=== PATIENT | female | born 1930 | race Caucasian/White ===

== ENCOUNTER 2020-11-15 11:50 | Emergency (ER) | payer MEDICARE, MEDICAID ==
[~2020-11-15] VITALS: Ht 170.2 cm; Wt 84.0 kg
[~2020-11-15 11:50] MED LIST: DORZOLAMIDE2 % OP; HYDROCHLOROT12.5 MG PO; LATANOPROST0.005 % OP; LISINOPRIL20 MG PO; PRILOSEC40 MG PO
[2020-11-15 13:48] LABS: HEMATOCRIT 43.4 % (37.0-47.0); HEMOGLOBIN 13.9 g/dl (12.0-16.0); IMMATURE GRANULOCYTES 0.3 % (0.0-5.0); MEAN CELL VOLUME 93.1 fL CALC (80.0-100.0); MEAN CORPUSCULAR HGB 29.8 pG CALC (26.0-32.0); NEUT# 7.06 thou/uL (2.00-7.15); RED BLOOD COUNT 4.66 mill/uL (4.20-5.60); RED CELL DISTRI WIDTH 13.1 % (11.5-15.5)
[2020-11-15 13:58] LABS: ALBUMIN 4.2 g/dL (3.2-5.0); ALKALINE PHOSPHATASE 117 u/l (38-126); ANION GAP 13 (6-22 (CALC)); BILIRUBIN, TOTAL 0.6 mg/dL (0.0-1.4); BUN 14 mg/dL (8-23); BUN/CREATININE RATIO 18 (12-20 (CALC)); CARBON DIOXIDE 25 mmol/l (22-30); CHLORIDE 103 mmol/l (95-108); CREATININE 0.8 mg/dL (0.5-1.0); GFR > 60 ML/MIN (>=60 (CALC)); GFR FOR AFR.AMER. > 60 ML/MIN (>=60 (CALC)); POTASSIUM 3.8 mmol/l (3.5-5.1); SGOT/AST 24 u/l (9-36); SODIUM 137 mmol/l (137-146); TOTAL PROTEIN 7.9 g/dL (6.3-8.2)
[2020-11-15 14:10] LABS: MYOGLOBIN 64 ng/mL (0 - 62)
[2020-11-15] MEDS ORDERED: METOPROLOL SUCCINATE PO (15:34)
[2020-11-15 16:11] VITALS: BP 163/82
== END 2020-11-15 16:29 | disposition home or self-care (01) ==
LOC: ED 11:50
PROVIDERS: Emergency Medicine
DX: S00.83XA Contusion of other part of head, initial encounter (principal); S00.31XA Abrasion of nose, initial encounter; I10 Essential (primary) hypertension; W01.0XXA Fall on same level from slipping, tripping and stumbling without subsequent striking against object, initial encounter; Y92.22 Religious institution as the place of occurrence of the external cause

== ENCOUNTER 2021-05-20 16:14 | Observation (INO) | payer MEDICARE, MEDICAID ==
[~2021-05-20] VITALS: Ht 170.2 cm; Wt 87.0 kg
[~2021-05-20 16:14] MED LIST changes: +DORZOLAMIDE HCL2 % OU; -DORZOLAMIDE2 % OP; +METOPROLOL SUCCINATE PO
--- NOTE | 2021-05-20 16:15 | NUR ---
TO ROOM BY EMS FOR TRIAGE
[2021-05-20 17:02] LABS: HEMATOCRIT 36.2 % (37.0-47.0); HEMOGLOBIN 11.3 g/dl (12.0-16.0); IMMATURE GRANULOCYTES 0.1 % (0.0-5.0); MEAN CELL VOLUME 93.5 fL CALC (80.0-100.0); MEAN CORPUSCULAR HGB 29.2 pG CALC (26.0-32.0); MEAN CORPUSCULAR HGB CONC 31.2 g/dL CAL (32.0-36.0); NEUT# 8.44 thou/uL (2.00-7.15); RED BLOOD COUNT 3.87 mill/uL (4.20-5.60); RED CELL DISTRI WIDTH 13.6 % (11.5-15.5)
[2021-05-20 17:11] LABS: ALKALINE PHOSPHATASE 88 u/l (38-126); ANION GAP 9 (6-22 (CALC)); BUN 12 mg/dL (8-23); BUN/CREATININE RATIO 17 (12-20 (CALC)); CARBON DIOXIDE 26 mmol/l (22-30); CHLORIDE 103 mmol/l (95-108); CREATININE 0.7 mg/dL (0.5-1.0); GFR > 60 ML/MIN (>=60 (CALC)); GFR FOR AFR.AMER. > 60 ML/MIN (>=60 (CALC)); LIPASE 77 u/l (23-300); POTASSIUM 3.9 mmol/l (3.5-5.1); SGOT/AST 19 u/l (9-36); SODIUM 134 mmol/l (137-146)
[2021-05-20 17:23] LABS: ALBUMIN 3.2 g/dL (3.2-5.0); BILIRUBIN, TOTAL 0.1 mg/dL (0.0-1.4); TOTAL PROTEIN 5.9 g/dL (6.3-8.2)
--- NOTE | 2021-05-20 17:46 | NUR ---
REPORT FROM ELIZABETH IN SBAR FORMAT
[2021-05-20 17:52] LABS: D-DIMER 1.66 mg/L (0.19-0.60)
[2021-05-20 18:00] LABS: ACT PARTIAL THROMBO TIME 20.3 SECONDS (20.0-32.5); INTERNATIONAL NORMALIZED RATIO 0.9 RATIO (0.7-1.3); PROTHROMBIN TIME 9.9 SECONDS (9.0-12.5)
--- NOTE | 2021-05-20 19:06 | NUR ---
RECIEVED REPORT FROM GIBSON ARIAS. ASSUMED CARE OF PATIENT. Reassessment of patient completed. No distress noted.
--- NOTE | 2021-05-20 20:00 | NUR ---
PHYSICAL ASSESMENT COMPLETE. PT CURRENTLY DENIES PAIN OR DISCOMFORT. SCHEDULED MEDICATIONS AND PRN MEDICATION ADMINISTERED, SEE E-MAR. PT DENIES ANY NEEDS AT THIS TIME. PLAN OF CARE REVIEWED, PT DENIES QUESTIONS, VERBALIZES UNDERSTANDING. ITEMS WITHIN REACH, BED LOCKED IN LOW POSITION W/ BEDRAILS UP X2. CALL NELSON WITHIN REACH, AGREES TO CALL PRN.
--- NOTE | 2021-05-20 21:05 | NUR ---
PT RECEIVED FROM ED TO ROOM 271. ARRIVES VIA STRETCHER ACCOMPANIED BY HITESH ARREAGA. PT AMBULATORY TO BED. GAIT STEADY. PT DENIES PAIN AT THIS TIME. ORIENTED TO UNIT, ROOM, CALL NELSON, LIGHTS, TV. ICE WATER PROVIDED. CALL NELSON WITHIN REACH. AGREES TO CALL PRN.
--- NOTE | 2021-05-20 21:05 | NUR ---
Admission Note Report Given to: SARAH ARREAGA Transported by: X Wheelchair Stretcher Transported with: X Nurse Transporter X Patent IV O2 X Development Trainer Location: ICU X [facility]
[2021-05-20 21:18] VITALS: BP 198/102
[2021-05-21] VITALS: BP 139/64
--- NOTE | 2021-05-21 | NUR ---
PT LAYING IN BED WITH EYES CLOSED, APPEARS TO BE SLEEPING, APPEARS COMFORTABLE AND IN NO DISTRESS. RESPIRATIONS REGULAR AND UNLABORED. ITEMS REMAIN WITHIN REACH, CALL NELSON REMAINS WITHIN REACH. BED REMAINS LOCKED AND IN LOW POSITION WITH BEDRAILS UP X2. WILL CONTINUE TO MONITOR.
[2021-05-21 04:00] VITALS: BP 155/65
[2021-05-21 06:28] LABS: HEMATOCRIT 35.9 % (37.0-47.0); HEMOGLOBIN 11.2 g/dl (12.0-16.0); MEAN CELL VOLUME 92.8 fL CALC (80.0-100.0); MEAN CORPUSCULAR HGB 28.9 pG CALC (26.0-32.0); MEAN CORPUSCULAR HGB CONC 31.2 g/dL CAL (32.0-36.0); RED BLOOD COUNT 3.87 mill/uL (4.20-5.60); RED CELL DISTRI WIDTH 13.6 % (11.5-15.5)
[2021-05-21 06:45] LABS: ANION GAP 9 (6-22 (CALC)); BUN 11 mg/dL (8-23); BUN/CREATININE RATIO 16 (12-20 (CALC)); CALCULATED LDLCHOLESTEROL 106 mg/dL (62-129 (CALC)); CARBON DIOXIDE 26 mmol/l (22-30); CHLORIDE 104 mmol/l (95-108); CHOLESTEROL HDL RATIO 4.8 (<4.4 (CALC)); CREATININE 0.7 mg/dL (0.5-1.0); GFR > 60 ML/MIN (>=60 (CALC)); GFR FOR AFR.AMER. > 60 ML/MIN (>=60 (CALC)); HDL CHOLESTEROL 35 mg/dL (>=40); POTASSIUM 4.3 mmol/l (3.5-5.1); SODIUM 134 mmol/l (137-146); TOTAL CHOLESTEROL 168 mg/dl (0-199); TOTAL TRIGLYCERIDES 132 mg/dl (30-149); VLDL CHOLESTROL 26 mg/dl (0-48 (CALC))
[2021-05-21 06:58] VITALS: BP 167/77
--- NOTE | 2021-05-21 06:58 | NUR ---
PATIENT RESTING IN BED BARBACK DONE SEE INTERVENTION. PATIENT DENEIS ANY PAIN AT THIS TIME. PATINET IS ON ROOM AIR AT THIS TIME. SPO2 IS 98% PATIENT IS ALERT AND ORIENTED X 3. PATIENT EXHIBITS NOT SIGNS OF EDEMA AT THIS TIME. SIDERAILS ARE UP CALL LIGHT IS WITHIN REACH.
[2021-05-21] MEDS ORDERED: TOPROL XL100 MG PO (07:14)
[2021-05-21] MEDS ORDERED: MELOXICAM15 MG PO (07:14)
[2021-05-21] MEDS ORDERED: APRESOLINE50 MG PO (07:17)
[2021-05-21] MEDS ORDERED: ASPIRIN ADULT L81 M2 PO (07:17)
--- NOTE | 2021-05-21 12:10 | NUR ---
PATIENT SITTING UP AT BEDSIDE DENIES ANY NEED AT THIS TIME. UA COLLECTED AND SENT TO LAB. SIDERAILS ARE UP CALL LIGHT WITHIN REACH .
[2021-05-21 12:44] LABS: URINE BILIRUBIN - DIPSTICK NEGATIVE (NEGATIVE); URINE BLOOD DIPSTICK NEGATIVE (NEGATIVE); URINE COLOR YELLOW; URINE GLUCOSE - DIPSTICK NEGATIVE (NEGATIVE); URINE KETONE NEGATIVE (NEGATIVE); URINE LEUK ESTERASE NEGATIVE (NEGATIVE); URINE PROTEIN - DIPSTICK NEGATIVE (NEG-TRACE); URINE UROBILINOGEN - DIPSTICK 0.2 E.U./dL (0.2)
[2021-05-21 12:46] LABS: URINE NITRITE - DIPSTICK NEGATIVE (Negative)
--- NOTE | 2021-05-21 13:33 | NUR ---
PATIENT D/C AT THIS TIME. IV REMOVED TIP INTACT TELEMONITOR REMOVED CALL ED SPOKE TO NURSE CONRADO TO INFORM. PATIENT VERBALIZES UNDERSTANDING OF D/C INSTRUCIONS.
--- NOTE | 2021-05-21 14:43 | NUR ---
Discharge instructions given. Patient verbalizes understanding of same. Discharged in stable condition via Wheelchair to Home with family. All belongings sent with pt.
[2021-05-21 15:20] VITALS: BP 123/71
== END 2021-05-21 14:44 | disposition home or self-care (01) ==
LOC: ED 16:14 → ED-I 17:47 → ED 18:09 → MS2 18:10
PROVIDERS: Nurse Practitioner; ADMIT Internal Medicine; ATTEND Internal Medicine
DX: R07.9 Chest pain, unspecified (principal); R53.83 Other fatigue; I10 Essential (primary) hypertension; M19.90 Unspecified osteoarthritis, unspecified site; Z20.822 Contact with and (suspected) exposure to COVID-19
CPT/HCPCS: G0378; J1650; Q9967

== ENCOUNTER 2021-07-21 11:36 | Observation (INO) | payer MEDICARE, MEDICAID ==
[~2021-07-21] VITALS: Ht 170.2 cm; Wt 77.0 kg
[2021-07-21] VITALS: BP 126/61
[~2021-07-21 11:36] MED LIST changes: +APRESOLINE50 MG PO; +ASPIRIN ADULT L81 M2 PO; +MELOXICAM15 MG PO; +TOPROL XL100 MG PO
--- NOTE | 2021-07-21 11:44 | NUR ---
PT TO ROOM PER EMS
[2021-07-21 12:29] LABS: HEMATOCRIT 36.4 % (37.0-47.0); IMMATURE GRANULOCYTES 0.6 % (0.0-5.0); MEAN CORPUSCULAR HGB 28.6 pG CALC (26.0-32.0); NEUT# 8.27 thou/uL (2.00-7.15); RED BLOOD COUNT 4.19 mill/uL (4.20-5.60); RED CELL DISTRI WIDTH 14.4 % (11.5-15.5)
[2021-07-21 12:30] LABS: MEAN CELL VOLUME 86.9 fL CALC (80.0-100.0)
--- NOTE | 2021-07-21 12:45 | NUR ---
PT TO RADIOLOGY FOR SCAN, UP TO BEDSIDE PRIOR TOO AND HAD A LIQUID STOOL FROM [facility] GIVEN, STATES SHE STILL FEELS FULL
[2021-07-21 12:48] LABS: CREATININE 1.2 mg/dL (0.5-1.0)
[2021-07-21 12:50] LABS: BILIRUBIN, TOTAL 0.4 mg/dL (0.0-1.4); POTASSIUM 5.4 mmol/l (3.5-5.1); TOTAL PROTEIN 7.6 g/dL (6.3-8.2)
--- NOTE | 2021-07-21 13:40 | NUR ---
PT SITTING IN BED, SEMIFOWLERS, NO DISTRESS AT THIS TIME
--- NOTE | 2021-07-21 15:00 | NUR ---
PT RESTING IN BED, ON TRAVELING SALES EXECUTIVE, AWAITING RESULTS
--- NOTE | 2021-07-21 16:00 | NUR ---
PT IN NO DISTRESS AT THIS TIME
--- NOTE | 2021-07-21 17:15 | NUR ---
GAVE REPORT TO CHRISTOPHE ARREAGA, PT TRANSPORTED TO THE FLOOR VIA WHEELCHAIR WITH LAMP SHADE SEWER AND ALL BELONGINGS WITH PATIENT. NO DISTRESS AT THIS TIME
--- NOTE | 2021-07-21 17:30 | NUR ---
PT ARRIVED TO ROOM VIA WHEELCHAIR WITH ER STAFF; ALERT AND OREINTED X3 IN STABLE CONDITION. AMBULATED TO BED WITH CANE. DENIES PAIN, BUT DOES HAVE LOWER ABDOMINAL TENDERNESS UPON PALPATION. RESPIRATIONS EVEN AND UNLABORED ON ROOM AIR. #20 IV TO RH WITH NORMAL SALINE INFUSING AT 75ML/HR PER ORDER; IV SITE APPEARS HEALTHY AND FLUSHES WELL. PHYSICAL ASSESSMENT COMPLETED; SEE PROCESS INTERVENTIONS. ORIENTED TO ROOM AND CALL LIGHT SYSTEM. PLAN OF CARE DISCUSSED; PT ENCOURAGED TO VERBALIZE CONCERNS; STATES UNDERSTANDING. SAFETY MEASURES IN PLACE. CALL LIGHT WITHIN REACH.
[2021-07-21 17:34] VITALS: BP 172/78
[2021-07-21 18:56] VITALS: BP 144/63
--- NOTE | 2021-07-21 19:47 | NUR ---
PT RESTING IN BED, NO SIGNS OF DISTRESS NOTED, RESP EVEN AND UNLABORED. PT ALERT AND ORIENTED X3, DISCUSSED POC, PT AGREES. DISCUSSED SUPPOSITORY ADMINISTRATION PT AGREES. SKIN INTACT. ASSESSMENT COMPLETED, PT MEDICATED PER MAR. BSC AT BEDSIDE, ENCOURAGED TO CALL FOR ASSISTANCE. CALL LIGHT IN REACH,CONTINUE TO MONITOR.
--- NOTE | 2021-07-21 20:55 | NUR ---
PT CALLED SHE HAD A BM, NOTED A SMALL FORMED HARD BM. NOTED IV DISLODGED, CATHETER INTACT. NEW IV SITE OBTAINED. #20 RAC PT TOLERATED WELL. CALL LIGHT IN REACH,CONTINUE TO MONITOR.
[2021-07-21 23:25] LABS: URINE BILIRUBIN - DIPSTICK NEGATIVE (NEGATIVE); URINE BLOOD DIPSTICK LARGE (NEGATIVE); URINE COLOR YELLOW; URINE GLUCOSE - DIPSTICK NEGATIVE (NEGATIVE); URINE KETONE NEGATIVE (NEGATIVE)
[2021-07-21 23:26] LABS: URINE LEUK ESTERASE SMALL (NEGATIVE); URINE NITRITE - DIPSTICK NEGATIVE (Negative)
[2021-07-21 23:41] LABS: URINE PROTEIN - DIPSTICK NEGATIVE (NEG-TRACE)
[2021-07-21 23:43] LABS: URINE EPITHELIAL CELLS MODERATE EPI/hpf (0-FEW)
[2021-07-21 23:44] LABS: URINE BACTERIA MANY hpf
[2021-07-22] VITALS: BP 126/61
--- NOTE | 2021-07-22 | NUR ---
PT AWAKE WATCHING TV, NO SIGNS OF DISTRESS NOTED, RESP EVEN AND UNLABORED. VOICES NO NEEDS OR COMPLAINTS AT THIS TIME. CALL LIGHT IN REACH,CONTINUE TO MONITOR.
[2021-07-22 04:11] VITALS: BP 147/63
--- NOTE | 2021-07-22 04:15 | NUR ---
NEW IV BAG OF FLUIDS HUNG, PT VOICES NO NEEDS OR COMPLAINTS AT THIS TIME, CALL LIGHT IN REACH, CONTINUE TO MONITOR.
[2021-07-22 06:10] LABS: HEMATOCRIT 33.9 % (37.0-47.0); HEMOGLOBIN 11.4 g/dl (12.0-16.0); MEAN CELL VOLUME 85.4 fL CALC (80.0-100.0); MEAN CORPUSCULAR HGB 28.7 pG CALC (26.0-32.0); MEAN CORPUSCULAR HGB CONC 33.6 g/dL CAL (32.0-36.0); RED BLOOD COUNT 3.97 mill/uL (4.20-5.60); RED CELL DISTRI WIDTH 14.2 % (11.5-15.5)
[2021-07-22 06:49] LABS: ANION GAP 12 (6-22 (CALC)); BUN 16 mg/dL (8-23); BUN/CREATININE RATIO 17 (12-20 (CALC)); CARBON DIOXIDE 20 mmol/l (22-30); CHLORIDE 99 mmol/l (95-108); CREATININE 0.9 mg/dL (0.5-1.0); GFR 59 ML/MIN (>=60 (CALC)); GFR FOR AFR.AMER. > 60 ML/MIN (>=60 (CALC)); MAGNESIUM 2.3 mg/dL (1.6-2.3); SODIUM 126 mmol/l (137-146)
[2021-07-22 06:50] LABS: POTASSIUM 5.4 mmol/l (3.5-5.1)
[2021-07-22 07:10] VITALS: BP 153/79
--- NOTE | 2021-07-22 07:10 | NUR ---
PATIENT RESTING IN BED AT THIS TIME. PATIENT DENIES ANY PAIN AND STATED "I'M FINALLY ABLE TO HAVE A BOWEL MOVEMENT" ICING AND GLAZE MAKER DONE AT THIS TIME. LUNG CRUZ ARE CLEAR IN UPPER CRUZ AND DIMINISHED IN LOWER CRUZ. TELE MONITOR ON AND IN PLACE AT THIS TIME AND BEING MONITORED BY ED. SIDERAILS ARE UP X 2 CALL LIGHT IS WITHIN REACH.
--- NOTE | 2021-07-22 08:26 | NUR ---
11 RUN V TACH REPORTED BY Carie PEDRO LPN/KISHA. Rona ALTAMIRANO APRN NOTIFIED; NO NEW ORDERS AT THIS TIME.
--- NOTE | 2021-07-22 08:40 | NUR ---
TELEMETRY STRIPS WITH RUNS OF V TACH SHOWN TO Rona ALTAMIRANO APRN
--- NOTE | 2021-07-22 08:46 | NUR ---
PATIENT SITTING UP AT BEDSIDE AND DENIES ANY PAIN AT THIS TIME. SIDERAILS ARE UP CALL LIGHT WITHIN REACH.
--- NOTE | 2021-07-22 09:23 | NUR ---
PHYSICAL THERAPY IN TO SEE PATIENT AT THIS TIME.
[2021-07-22] MEDS ORDERED: POLYETHYLENE GL17 GM PO (10:52)
[2021-07-22] MEDS ORDERED: BISACODYL10 M2 RE (10:52)
[2021-07-22 11:23] VITALS: BP 148/68
[2021-07-22 11:44] LABS: URINE BILIRUBIN - DIPSTICK NEGATIVE (NEGATIVE); URINE BLOOD DIPSTICK NEGATIVE (NEGATIVE); URINE CLARITY CLEAR; URINE COLOR YELLOW; URINE GLUCOSE - DIPSTICK NEGATIVE (NEGATIVE); URINE KETONE NEGATIVE (NEGATIVE); URINE LEUK ESTERASE NEGATIVE (Negative); URINE NITRITE - DIPSTICK NEGATIVE (Negative); URINE PROTEIN - DIPSTICK NEGATIVE (NEG-TRACE); URINE UROBILINOGEN - DIPSTICK 0.2 E.U./dL (0.2)
--- NOTE | 2021-07-22 11:56 | NUR ---
PATIENT SITTING UP IN CHAIR AT THIS TIME EATING LUNCH. RADHANET HAS BEEN D/C AT THIS TIME. PATIENT VERBALIZES UNDERSTANDING OF DC INSTRUCITON AT THIS TIME. CALL LIGHT IS WITHIN REACH. ED CALLED AND ADVISED PATIENT COMING OFF TELE AT THIS TIME.
--- NOTE | 2021-07-22 13:29 | NUR ---
Discharge instructions given. Patient verbalizes understanding of same. Discharged in stable condition via Wheelchair to Home with *Other. All belongings sent with pt. [facility]
== END 2021-07-22 13:29 ==
LOC: ED 11:36 → ED-I 14:07 → ED 14:40 → MS2 14:41
PROVIDERS: Family Medicine; Nurse Practitioner; ADMIT Hospitalist; ATTEND Hospitalist
DX: K56.41 Fecal impaction (principal); E87.1 Hypo-osmolality and hyponatremia; N17.9 Acute kidney failure, unspecified; E87.5 Hyperkalemia; I10 Essential (primary) hypertension; I25.10 Atherosclerotic heart disease of native coronary artery without angina pectoris; K21.9 Gastro-esophageal reflux disease without esophagitis; H40.9 Unspecified glaucoma; Z20.822 Contact with and (suspected) exposure to COVID-19
CPT/HCPCS: J1650; Q9967

== ENCOUNTER 2022-10-21 14:56 | Observation (INO) | payer MEDICARE, MEDICAID ==
[~2022-10-21] VITALS: Ht 170.2 cm; Wt 68.0 kg
[2022-10-21] VITALS (14 sets, daily range): BP systolic 134–215; BP diastolic 74–115
[~2022-10-21 14:56] MED LIST changes: +BISACODYL10 M2 RE; +POLYETHYLENE GL17 GM PO
[2022-10-21 15:41] LABS: BASO% 0.2 % (0-3); EOS% 0.2 % (0-8); HEMOGLOBIN 12.4 g/dl (12.0-16.0); IMMATURE GRANULOCYTES 0.2 % (0.0-5.0); LYMPH% 6.8 % (15-41); MEAN CELL VOLUME 83.7 fL CALC (80.0-100.0); MEAN CORPUSCULAR HGB 26.6 pG CALC (26.0-32.0); MEAN CORPUSCULAR HGB CONC 31.8 g/dL CAL (32.0-36.0); MONO% 5.4 % (2-13); NEUT# 11.23 thou/uL (2.00-7.15); NEUT% 87.2 % (42-76); RED BLOOD COUNT 4.66 mill/uL (4.20-5.60)
[2022-10-21 16:07] LABS: ALKALINE PHOSPHATASE 90 u/l (38-126); ANION GAP 9 (6-22 (CALC)); BUN 12 mg/dL (8-23); BUN/CREATININE RATIO 17 (12-20 (CALC)); CARBON DIOXIDE 27 mmol/l (22-30); CHLORIDE 95 mmol/l (95-108); CREATININE 0.7 mg/dL (0.5-1.0); GFR FOR AFR.AMER. > 60 ML/MIN (>=60 (CALC)); GFR OTHER RACES > 60 ML/MIN (>=60 (CALC)); SGOT/AST 30 u/l (9-36); SODIUM 127 mmol/l (137-146); TOTAL PROTEIN 7.9 g/dL (6.3-8.2)
[2022-10-21 16:08] LABS: BILIRUBIN, TOTAL 0.2 mg/dL (0.02-1.3)
[2022-10-21 17:44] LABS: URINE BILIRUBIN - DIPSTICK NEGATIVE (NEGATIVE); URINE BLOOD DIPSTICK NEGATIVE (NEGATIVE); URINE COLOR YELLOW; URINE GLUCOSE - DIPSTICK NEGATIVE (NEGATIVE); URINE KETONE NEGATIVE (NEGATIVE); URINE LEUK ESTERASE NEGATIVE (NEGATIVE); URINE NITRITE - DIPSTICK NEGATIVE (Negative); URINE PH 5.5 (4.5-8.0); URINE PROTEIN - DIPSTICK NEGATIVE (NEG-TRACE); URINE UROBILINOGEN - DIPSTICK 0.2 E.U./dL (0.2)
[2022-10-22] VITALS (7 sets, daily range): BP systolic 108–149; BP diastolic 57–86
[2022-10-22 06:47] LABS: CHOLESTEROL HDL RATIO 2.8 (<4.4 (CALC)); MAGNESIUM 1.8 mg/dL (1.6-2.3)
[2022-10-23] VITALS (8 sets, daily range): BP systolic 108–159; BP diastolic 56–82
[2022-10-23 05:00] LABS: HEMOGLOBIN 12.1 g/dl (12.0-16.0); MEAN CELL VOLUME 83.3 fL CALC (80.0-100.0); MEAN CORPUSCULAR HGB 27.3 pG CALC (26.0-32.0); MEAN CORPUSCULAR HGB CONC 32.7 g/dL CAL (32.0-36.0); RED BLOOD COUNT 4.44 mill/uL (4.20-5.60); RED CELL DISTRI WIDTH 15.4 % (11.5-15.5)
[2022-10-23 05:06] LABS: ALBUMIN 3.5 g/dL (3.2-5.0); ALKALINE PHOSPHATASE 76 u/l (38-126); ANION GAP 9 (6-22 (CALC)); CARBON DIOXIDE 30 mmol/l (22-30); CHLORIDE 94 mmol/l (95-108); CREATININE 0.9 mg/dL (0.5-1.0); GFR FOR AFR.AMER. > 60 ML/MIN (>=60 (CALC)); GFR OTHER RACES 59 ML/MIN (>=60 (CALC)); MAGNESIUM 1.9 mg/dL (1.6-2.3); POTASSIUM 4.8 mmol/l (3.5-5.1); SGOT/AST 30 u/l (9-36); SODIUM 128 mmol/l (137-146); TOTAL PROTEIN 6.7 g/dL (6.3-8.2)
[2022-10-23 05:15] LABS: BUN 32 mg/dL (8-23); BUN/CREATININE RATIO 36 (12-20 (CALC))
[2022-10-24] VITALS (8 sets, daily range): BP systolic 108–155; BP diastolic 50–73
[2022-10-24 05:01] LABS: HEMATOCRIT 37.2 % (37.0-47.0); HEMOGLOBIN 11.8 g/dl (12.0-16.0); MEAN CELL VOLUME 84.2 fL CALC (80.0-100.0); MEAN CORPUSCULAR HGB 26.7 pG CALC (26.0-32.0); MEAN CORPUSCULAR HGB CONC 31.7 g/dL CAL (32.0-36.0); RED BLOOD COUNT 4.42 mill/uL (4.20-5.60); RED CELL DISTRI WIDTH 15.2 % (11.5-15.5)
[2022-10-24 05:08] LABS: ALBUMIN 3.3 g/dL (3.2-5.0); ALKALINE PHOSPHATASE 70 u/l (38-126); ANION GAP 9 (6-22 (CALC)); BUN 34 mg/dL (8-23); BUN/CREATININE RATIO 46 (12-20 (CALC)); CARBON DIOXIDE 32 mmol/l (22-30); CHLORIDE 92 mmol/l (95-108); CREATININE 0.7 mg/dL (0.5-1.0); GFR FOR AFR.AMER. > 60 ML/MIN (>=60 (CALC)); GFR OTHER RACES > 60 ML/MIN (>=60 (CALC)); MAGNESIUM 1.9 mg/dL (1.6-2.3); POTASSIUM 4.7 mmol/l (3.5-5.1); SGOT/AST 29 u/l (9-36); SODIUM 127 mmol/l (137-146); TOTAL PROTEIN 6.4 g/dL (6.3-8.2)
[2022-10-25 04:24] VITALS: BP 155/65
[2022-10-25 06:30] VITALS: BP 150/83
[2022-10-25 09:51] VITALS: BP 146/66
[2022-10-25] MEDS ORDERED: OMNICEF300 MG PO (10:30)
[2022-10-25] MEDS ORDERED: LASIX 20 MG TAB20 MG PO (10:30)
[2022-10-25] MEDS ORDERED: PREDNISONE10 MG PO (10:30)
[2022-10-25 14:30] VITALS: BP 138/78; BP 153/69
[2022-10-25 18:49] VITALS: BP 139/76
== END 2022-10-25 19:26 ==
LOC: ED 14:56 → ED-I 18:20 → ED 18:32 → MS2 18:33
PROVIDERS: Nurse Practitioner; ADMIT Internal Medicine; ATTEND Internal Medicine
DX: J44.1 Chronic obstructive pulmonary disease with (acute) exacerbation (principal); J96.01 Acute respiratory failure with hypoxia; R91.8 Other nonspecific abnormal finding of lung field; E87.1 Hypo-osmolality and hyponatremia; E87.70 Fluid overload, unspecified; I10 Essential (primary) hypertension; I25.10 Atherosclerotic heart disease of native coronary artery without angina pectoris; M19.90 Unspecified osteoarthritis, unspecified site; H40.9 Unspecified glaucoma; K21.9 Gastro-esophageal reflux disease without esophagitis; H54.8 Legal blindness, as defined in USA; Z77.22 Contact with and (suspected) exposure to environmental tobacco smoke (acute) (chronic); Z20.822 Contact with and (suspected) exposure to COVID-19
CPT/HCPCS: J1650; Q9967